=== PATIENT | female | born 1935 | race Caucasian/White ===

== ENCOUNTER 2016-11-14 16:05 | Emergency (ER) | payer OTHER ==
[~2016-11-14] VITALS: Ht 152.4 cm; Wt 49.9 kg
--- NOTE | ~2016-11-14 | EKG ---
[facility] [address] [facility] [place] [address] ELECTROCARDIOGRAM REPORT Name: JERROD CLARKE Room #: [facility] M.R.#: [id number] Admission: Attend Phys: Discharge: Date of : 31 Report #: [id number] THIS REPORT FOR: //name// 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 No previous ECG available for comparison Electronically Signed On 11-14-2016 16:53:52 CDT by Crow Damon [email or web address] <ELECTRONICALLY SIGNED> By: Crow Damon MD 11/14/16 1653 1605 1605 Crow Damon MD /TAMIR
[2016-11-14 16:06] VITALS: BP 140/80
[2016-11-14] MEDS ORDERED: NORVASC2.5 MG PO (16:13)
[2016-11-14] MEDS ORDERED: CALCIUM 500 +1 EAC5 PO (16:14)
[2016-11-14] MEDS ORDERED: DEPAKOTE 250MG250 M1 PO (16:14)
[2016-11-14] MEDS ORDERED: ATIVAN0.5 MG PO (16:14)
[2016-11-14] MEDS ORDERED: TOPROL XL100 MG PO (16:15)
[2016-11-14] MEDS ORDERED: ARICEPT 5 MG TAB5 MG PO (16:15)
[2016-11-14] MEDS ORDERED: LEVOTHYROXIN0.025 MG PO (16:15)
[2016-11-14] MEDS ORDERED: REMERON15 MG PO (16:15)
[2016-11-14] MEDS ORDERED: LOPERAMIDE 2 MG2 M1 PO (16:15)
[2016-11-14] MEDS ORDERED: ZYPREXA2.5 MG PO (16:16)
[2016-11-14] MEDS ORDERED: SEROQUEL 25 MG25 M1 PO (16:16)
[2016-11-14 16:41] LABS: ANION GAP 4 mmol/L (7-16); BUN 22 mg/dL (7-18); CALCIUM 10.3 mg/dL (8.5-10.1); CHLORIDE 105 mmol/L (98-107); CO2 31 mmol/L (21-32); GLUCOSE 99 mg/dL (74-106); POTASSIUM 4.9 mmol/L (3.5-5.1); SODIUM 140 mmol/L (136-145)
[2016-11-14 16:49] LABS: ALBUMIN 3.7 g/dL (3.4-5.0); ALKALINE PHOSPHATASE 92 U/L (46-116); DIRECT BILIRUBIN 0.1 mg/dL (<0.1-0.3); SGOT 28 U/L (15-37); SGPT 20 U/L (30-65); TOTAL BILIRUBIN 0.4 mg/dL (<0.1-1.0); TOTAL PROTEIN 7.5 g/dL (6.4-8.2); TROPONIN-I < 0.04 ng/mL (<0.04-0.07)
[2016-11-14 16:53] LABS: ABSOLUTE NEUTROPHILS 8.7 thou/uL (1.4-8.2); BASOPHILS 1.2 % (0.0-2.0); EOSINOPHILS 0.8 % (0.0-3.0); HEMATOCRIT 42.6 % (37.0-47.0); HEMOGLOBIN 14.3 gm/dL (12.0-15.0); LYMPHOCYTES 16.1 % (24.0-44.0); MCH 31.1 pg (26.0-34.0); MCHC 33.5 g/dL (28.0-37.0); MCV 92.8 fL (80.0-100.0); MONOCYTES 9.6 % (1.0-8.0); PLATELET COUNT 330 thou/uL (150-400); POLYS 72.3 % (36.0-66.0); RBC 4.59 mil/uL (4.20-5.00); RDW 13.9 % (10.5-14.5)
[2016-11-14 16:54] LABS: MANUAL DIFF NO
[2016-11-14 17:24] LABS: URINE BILIRUBIN NEGATIVE (Negative); URINE BLOOD NEGATIVE (Negative); URINE COLOR YELLOW; URINE GLUCOSE-RANDOM* NEGATIVE (Negative); URINE KETONES NEGATIVE (Negative); URINE NITRITE NEGATIVE (Negative); URINE PROTEIN (DIPSTICK) NEGATIVE (Negative); URINE SPECIFIC GRAVITY 1.015 (1.003-1.035); URINE UROBILINOGEN 0.2 E.U./dl (0.2-1.0)
== END 2016-11-14 17:55 | disposition home or self-care (01) ==
LOC: ER 16:05
PROVIDERS: Emergency Medicine
DX: R07.9 Chest pain, unspecified (principal); R10.9 Unspecified abdominal pain

== ENCOUNTER 2017-10-06 10:48 | Inpatient (IN) | payer OTHER ==
[~2017-10-06] VITALS: Ht 152.4 cm; Wt 46.3 kg
--- NOTE | ~2017-10-06 | O ---
[facility] [address] OPERATIVE REPORT Name: JERROD CLARKE Room #: 452-P ADM IN M.R.#: [id number] Admission: 10/06/17 Attend Phys: Jose Young MD Discharge: Date of : 31 Report #: [id number] THIS REPORT FOR: //name// CC: Rodolfo Young DATE OF SERVICE: 10/07/2017 PREOPERATIVE DIAGNOSIS: Left hip femoral neck fracture, displaced. POSTOPERATIVE DIAGNOSIS: Left hip femoral neck fracture, displaced. PROCEDURE PERFORMED: Left hip hemiarthroplasty. SURGEON: Jeffrey Amaro MD FACILITY PRACTICE SPECIALIST: Fani Greenberg PA-C ANESTHESIA: General. FLUIDS: 800 mL crystalloid. ESTIMATED BLOOD LOSS: Approximately 50 mL. IMPLANTS UTILIZED: [employer] Sy[employer] cemented stem size 11 with 45 mm unipolar head and a +4 taper sleeve assembly with a 9 mm distal centralizer. DESCRIPTION OF PROCEDURE: After proper identification of the patient and operative site in preoperative holding area, the operative site was signed by myself. Prophylactic antibiotics given. The patient elected to receive the above noted procedure. The patient's daughter was at bedside. Risks, benefits, alternatives and potential complications of the injury and treatment were discussed in detail. The patient was brought back to the operative suite after induction of satisfactory general anesthesia per LMA. The patient was carefully positioned in the right lateral decubitus position. Left hip was sterilely prepped and draped in usual manner. Posterior approach was planned. Final skin draping was with Ioban. Full thickness skin flaps were developed. Standard posterior approach was created. Piriformis tendon was identified and tagged and a T-shaped capsulotomy was performed. Fracture hematoma was evacuated. A corkscrew was used to remove the femoral head, which measured 45 mm. Osteotomy was performed about the femoral neck utilizing guide and any remaining fragmented area or bone debris was carefully removed. The neck appeared intact without obvious extension of the fracture into the calcar or shaft region. Trial femoral heads were utilized and the 45 mm head provided the best fit. The canal was then reamed by hand and broached up to a size 11 stem. Trial implants revealed a +4 sleeve and 45 head provided the best overall stability of the hip [facility] [address] [place] [address] OPERATIVE REPORT Name: JERROD CLARKE Room #: 452-P [facility] IN M.R.#: [id number] Admission: 10/06/17 Attend Phys: Jose Young MD Discharge: Date of : 31 Report #: [id number] as well as restoring the leg lengths. Trial implants were removed. The canal was brushed. Distal cement restrictor was placed. This was thoroughly irrigated with Pulsavac. This was then dried and two bags of cement were prepared. They were injected and pressurized. The stem was inserted and impacted carefully into position in an anteverted position. Excess bone cement was removed. The implant was held firmly until the cement had cured. Trial sleeve and head were again utilized and a +4, 45 mm head was the implant chosen. These were carefully impacted on the Cunningham taper. Hip was reduced. It was stable throughout full arc of motion. Leg lengths appeared equal on the table. The capsule was repaired with #2 FiberWire. Piriformis was repaired with #2 FiberWire. The joint was irrigated multiple times with antibiotic irrigant. The fascia was closed with 0 Vicryl, 2-0 Vicryl for the subcutaneous tissues followed by afua. A CHRISTY dressing was applied. At the time of dictation, she was still in the operative suite with anticipated discharge to the recovery room in stable condition. By: 1247 1455 Jeffrey Amaro MD /nt
--- NOTE | ~2017-10-06 | HC ---
[facility] [place] [address] CONSULTATION Name: JERROD CLARKE Room #: 452-P ADM IN M.R.#: [id number] Admission: 10/06/17 Attend Phys: Jose Young MD Discharge: Date of : 31 Report #: [id number] THIS REPORT FOR: //name// CC: Rodolfo Young CHIEF COMPLAINT: Left hip pain. HISTORY OF PRESENT ILLNESS: The patient presented to the Emergency Department at [facility] today, 10/06/2017, with complaints of left hip pain. Per the daughter's report, the patient was found in her apartment at [facility], where it appeared that she had fallen and was unable to get up. Once she was found, she was transported via EMS to [facility]. She had x-rays performed, which showed a fracture of her left hip. The patient's daughter provides majority of the patient's history as the patient is a poor historian, have Alzheimer's and is sleeping at time of interview. ALLERGIES: PENICILLIN, SULFA, LACTOSE, LATEX, STRAWBERRY. PAST MEDICAL HISTORY: Significant for Alzheimer dementia, hypothyroidism, hypertension and anxiety. HOME MEDICATIONS: Please see EMR for dosages, but include lorazepam, calcium carbonate, donepezil, loperamide, levothyroxine, metoprolol, mirtazapine, olanzapine, amlodipine, divalproex. SOCIAL HISTORY: The patient lives at [facility]. She denies any tobacco, alcohol or drug use. PHYSICAL EXAMINATION: VITAL SIGNS: Pulse 71, blood pressure 162/74, respiratory rate 16. GENERAL: The patient appears to be well nourished, in no acute distress. She is resting comfortably. EXTREMITIES: Left lower extremity is neurovascularly intact. Tenderness to palpation of the left hip. Calf is soft and nontender. IMAGING: AP and lateral of the left hip show a left femoral neck fracture. LABORATORY DATA: White blood cell count 29.3, hemoglobin 16. UA shows 2+ protein and 2+ blood, few bacteria seen on UA. IMPRESSION: Left femoral neck fracture. ASSESSMENT: Discussed the patient's diagnosis and treatment options today with the patient's daughter. Treatment options could include both operative and nonoperative. Operative intervention would include a left hip hemiarthroplasty. [address] [address] CONSULTATION Name: JERROD CLARKE Room #: 452-P [facility] IN M.R.#: [id number] Admission: 10/06/17 Attend Phys: Jose Young MD Discharge: Date of : 31 Report #: [id number] The patient's daughter is interested in proceeding with operative intervention. Pending medical clearance, we will plan on proceeding with surgery tomorrow. <ELECTRONICALLY SIGNED> By: JUD Markham 10/07/17 1108 [id number] JUD Markham /latanya
[~2017-10-06 10:48] MED LIST: ARICEPT 5 MG TAB5 MG PO; ATIVAN0.5 MG PO; CALCIUM 500 +1 EAC5 PO; DEPAKOTE 250MG250 M1 PO; LEVOTHYROXIN0.025 MG PO; LOPERAMIDE 2 MG2 M1 PO; NORVASC2.5 MG PO; REMERON15 MG PO; SEROQUEL 25 MG25 M1 PO; TOPROL XL100 MG PO; ZYPREXA2.5 MG PO
[2017-10-06 10:56] VITALS: BP 186/104
[2017-10-06] MEDS ORDERED: NORVASC5 MG PO (11:20)
[2017-10-06] MEDS ORDERED: DEPAKOTE 250MG250 M1 PO (11:23)
[2017-10-06 13:51] VITALS: BP 162/74
[2017-10-06 14:01] LABS: HEMATOCRIT 47.6 % (37.0-47.0); HEMOGLOBIN 16.3 gm/dL (12.0-15.0); MCH 31.2 pg (26.0-34.0); MCHC 34.3 g/dL (28.0-37.0); MCV 91.1 fL (80.0-100.0); PLATELET COUNT 340 thou/uL (150-400); RBC 5.22 mil/uL (4.20-5.00); WBC 29.3 thou/uL (4.0-11.0)
[2017-10-06 14:17] LABS: APTT 29.2 Seconds (24.5-32.8); PROTIME 10.5 Seconds (9.3-11.4)
[2017-10-06 14:21] LABS: URINE BILIRUBIN NEGATIVE (Negative); URINE BLOOD 2+ (Negative); URINE CLARITY CLEAR; URINE COLOR YELLOW; URINE GLUCOSE-RANDOM* NEGATIVE (Negative); URINE KETONES NEGATIVE (Negative); URINE LEUKOCYTES-REFLEX NEGATIVE (Negative); URINE NITRITE-REFLEX NEGATIVE (Negative); URINE PROTEIN (DIPSTICK) 2+ (Negative); URINE UROBILINOGEN 0.2 E.U./dl (0.2-1.0)
[2017-10-06 14:29] LABS: CALCIUM 10.1 mg/dL (8.5-10.1); CREATININE 1.1 mg/dL (0.6-1.0)
[2017-10-06 14:40] LABS: ABSOLUTE NEUTROPHILS 25.8 thou/uL (1.4-8.2)
[2017-10-06 14:41] LABS: PLATELET ESTIMATE INCREASED
[2017-10-06 14:51] LABS: BACTERIA-REFLEX 1-9 Few /HPF (None Seen); CASTS None Seen /LPF (None Seen); CRYSTALS None Seen /LPF (None Seen); SQUAMOUS None Seen /LPF (0-3); URINE RBC 3-10 Few /HPF (0-2); URINE WBC-REFLEX 0-5 Rare /HPF (0-5)
[2017-10-06 15:45] VITALS: BP 149/90
[2017-10-06 20:21] VITALS: BP 169/70
[2017-10-07] VITALS (16 sets, daily range): BP systolic 108–173; BP diastolic 52–89
[2017-10-07 04:23] LABS: HEMATOCRIT 47.7 % (37.0-47.0); HEMOGLOBIN 16.1 gm/dL (12.0-15.0); MCHC 33.8 g/dL (28.0-37.0); MCV 91.5 fL (80.0-100.0); RBC 5.21 mil/uL (4.20-5.00); RDW 13.8 % (10.5-14.5); WBC 26.5 thou/uL (4.0-11.0)
[2017-10-07 04:39] LABS: CALCIUM 9.9 mg/dL (8.5-10.1); CREATININE 1.2 mg/dL (0.6-1.0)
[2017-10-07 19:53] LABS: URINE BILIRUBIN NEGATIVE (Negative); URINE BLOOD 3+ (Negative); URINE CLARITY CLEAR; URINE COLOR YELLOW; URINE GLUCOSE-RANDOM* NEGATIVE (Negative); URINE KETONES NEGATIVE (Negative); URINE LEUKOCYTES-REFLEX NEGATIVE (Negative); URINE NITRITE-REFLEX NEGATIVE (Negative); URINE PROTEIN (DIPSTICK) TRACE (Negative); URINE SPECIFIC GRAVITY >= 1.030 (1.005-1.035); URINE UROBILINOGEN 0.2 E.U./dl (0.2-1.0)
[2017-10-07 20:11] LABS: MUCUS 4-6 Moderate strn/LPF (None Seen); SQUAMOUS 0-3 Few /LPF (0-3)
[2017-10-07 20:12] LABS: BACTERIA-REFLEX None Seen /HPF (None Seen); CASTS None Seen /LPF (None Seen); CRYSTALS None Seen /LPF (None Seen); URINE RBC >20 Many /HPF (0-2); URINE WBC-REFLEX 0-5 Rare /HPF (0-5)
[2017-10-08 01:10] VITALS: BP 148/64
[2017-10-08 05:15] VITALS: BP 122/70
[2017-10-08 05:42] LABS: CALCIUM 8.9 mg/dL (8.5-10.1); CREATININE 1.1 mg/dL (0.6-1.0); POTASSIUM 3.8 mmol/L (3.5-5.1)
[2017-10-08 06:15] LABS: HEMATOCRIT 38.7 % (37.0-47.0); MCH 30.6 pg (26.0-34.0); MCHC 33.3 g/dL (28.0-37.0); RBC 4.21 mil/uL (4.20-5.00); RDW 13.9 % (10.5-14.5); WBC 20.2 thou/uL (4.0-11.0)
[2017-10-08 06:18] LABS: HEMOGLOBIN 12.9 gm/dL (12.0-15.0); PLATELET COUNT 251 thou/uL (150-400)
[2017-10-08 08:00] VITALS: BP 121/54
[2017-10-08 08:53] LABS: ABSOLUTE NEUTROPHILS 16.2 thou/uL (1.4-8.2)
[2017-10-08 15:53] VITALS: BP 183/79
[2017-10-08 19:51] VITALS: BP 145/81
[2017-10-08 19:57] VITALS: BP 145/81
[2017-10-09 04:06] VITALS: BP 147/95
[2017-10-09 06:12] LABS: ABSOLUTE NEUTROPHILS 16.1 thou/uL (1.4-8.2); BASOPHILS 0.6 % (0.0-2.0); EOSINOPHILS 0.3 % (0.0-3.0); HEMATOCRIT 39.9 % (37.0-47.0); HEMOGLOBIN 13.4 gm/dL (12.0-15.0); LYMPHOCYTES 5.7 % (24.0-44.0); MCH 30.8 pg (26.0-34.0); MCHC 33.5 g/dL (28.0-37.0); MCV 91.8 fL (80.0-100.0); MONOCYTES 11.5 % (1.0-8.0); PLATELET COUNT 256 thou/uL (150-400); POLYS 81.9 % (36.0-66.0); RBC 4.34 mil/uL (4.20-5.00); RDW 13.7 % (10.5-14.5); WBC 19.6 thou/uL (4.0-11.0)
[2017-10-09 06:24] LABS: CALCIUM 9.2 mg/dL (8.5-10.1); POTASSIUM 3.6 mmol/L (3.5-5.1)
[2017-10-09 08:00] VITALS: BP 128/67
[2017-10-09 15:54] VITALS: BP 145/95
== END 2017-10-09 17:16 | DRG 469 ==
LOC: ER 10:48 → EROBS 12:48 → 4W 12:48
PROVIDERS: Hospitalist; Physician Assistant
PROC: 0SRS0J9 Replacement of Left Hip Joint, Femoral Surface with Synthetic Substitute, Cemented, Open Approach (ICD-10-PCS; principal; 2017-10-07)
DX: S72.002A Fracture of unspecified part of neck of left femur, initial encounter for closed fracture (principal); E43 Unspecified severe protein-calorie malnutrition; E03.9 Hypothyroidism, unspecified; I10 Essential (primary) hypertension; F41.9 Anxiety disorder, unspecified; D72.829 Elevated white blood cell count, unspecified; G30.9 Alzheimer's disease, unspecified; F02.80 Dementia in other diseases classified elsewhere, unspecified severity, without behavioral disturbance, psychotic disturbance, mood disturbance, and anxiety; W18.39XA Other fall on same level, initial encounter; F32.9 Major depressive disorder, single episode, unspecified; Z79.899 Other long term (current) drug therapy; Z88.0 Allergy status to penicillin; Z88.2 Allergy status to sulfonamides; Z88.8 Allergy status to other drugs, medicaments and biological substances; Z91.040 Latex allergy status; Z47.89 Encounter for other orthopedic aftercare; Y93.89 Activity, other specified; Y92.89 Other specified places as the place of occurrence of the external cause; Y99.8 Other external cause status
CPT/HCPCS: 10040; 50010; 50101; 50382; 50414; 51130; 51412; 53000; 53078; 54170; 56460; 56525; 56530; 62110; 62900; 70005